=== PATIENT | male | born 1955 | race Caucasian/White ===

== ENCOUNTER 2020-06-23 09:45 | Day surgery (SDC) | payer MEDICARE, OTHER ==
[2020-06-18 11:05] LABS: BASOPHILS % (AUTO) 0.2 % (0-1); EOSINOPHILS # (AUTO) 0.1 X10'3 (0-0.9); EOSINOPHILS % (AUTO) 1.3 % (0-6); LYMPHOCYTES # (AUTO) 1.8 X10'3 (1.1-4.8); LYMPHOCYTES % (AUTO) 24.3 % (21-51); MEAN CORPUSCULAR HEMOGLOBIN 31.3 PG (27.0-31.0); MEAN CORPUSCULAR HGB CONC 34.2 g/dL (33.0-36.5); MEAN CORPUSCULAR VOLUME 91.4 FL (78-98); MEAN PLATELET VOLUME 7.6 FL (7.4-10.4); MONOCYTES # (AUTO) 0.7 X10'3 (0-0.9); MONOCYTES % (AUTO) 9.2 % (2-12); NEUTROPHILS # (AUTO) 4.8 X10'3 (1.8-7.7); PRE OP HEMOGLOBIN 14.4 g/dL (14.0-17.9); PRE OP PLATELET COUNT 251 X10'3 (140-440); RED CELL DISTRIBUTION WIDTH 13.3 % (11.5-14.5)
[2020-06-18 11:12] LABS: ALBUMIN 3.9 G/DL (3.4-5.0); ALBUMIN/GLOBULIN RATIO 1.1 (1.1-1.5); ALKALINE PHOSPHATASE 56 IU/L (46-116); BLOOD UREA NITROGEN 11 MG/DL (7-18); BUN/CREATININE RATIO 14.5 (5.4-32.0); CALCIUM 9.1 MG/DL (8.5-10.1); CHLORIDE 106 MMOL/L (99-107); CREATININE 0.76 MG/DL (0.60-1.10); PRE OP ALT 30 U/L (30-65); PRE OP ANION GAP 9 (8-16); PRE OP AST 14 U/L (10-37); PRE OP BILIRUB, TOTAL 0.7 MG/DL (0.0-1.0); PRE OP GLUCOSE 109 MG/DL (70-104); PRE OP POTASSIUM 4.3 MMOL/L (3.4-5.1); PRE OP SODIUM 143 MMOL/L (135-145); TOTAL CARBON DIOXIDE 27.8 MMOL/L (24-32); TOTAL PROTEIN 7.5 G/DL (6.4-8.2); eGFR > 90 ML/MIN
[2020-06-18 11:33] LABS: PRE OP PROTIME 10.7 SECONDS (9.0-12.0)
[2020-06-18 11:49] LABS: HEMOGLOBIN A1C 5.9 % (4.5-6.2)
[2020-06-23] VITALS (16 sets, daily range): BP systolic 96–148; BP diastolic 51–88
[~2020-06-23] VITALS: Ht 170.2 cm; Wt 88.5 kg
[~2020-06-23 09:45] MED LIST: AMLO10TA4 PO; ASPI81TA49 PO; CARV3.122 PO; DOCUMENT DATE & TIME OF BETA-BLOCKER PO ONE; FLO0.4C PO; MULT-227 PO; PANT-47 PO; TRANEXAMIC ACID 1 GM IN NACL,ISO-OS 100 ML IV ONE; VITA-268 PO; [UNRECOGNIZED DRUG - CODE] PO; [UNRECOGNIZED DRUG - OTHER] PO; [UNRECOGNIZED DRUG - OTHER] PO; ceFAZolin 2gm in dextrose, iso 50 ML IV ONE; famotidine 20mg tablet PO ONE; meperidine/PF 25mg/ml syringe IV PRN; morphine 2 MG/ML inj. syringe IV PRN; morphine 4 MG/ML inj SYRINge IV PRN; ondansetron/PF 4mg/2ml inj IV PRN; proCHLORperazine 10 MG/2 ml inj IV PRN; ringers solution, lacted 1,000 ML IV SCH; vancomycin 1,500 MG in NS 300ml IV soln IV ONE
[2020-06-23] MEDS ORDERED: ceFAZolin 1000mg inj ONE (10:57)
[2020-06-23] MEDS ORDERED: fentaNYL/PF 50MCG/1 ML 2ML syringe ONE (11:05)
[2020-06-23] MEDS ORDERED: morphine /PF 1mg/ml 10ml inj. ONE (11:05)
[2020-06-23] MEDS ORDERED: MIDAZolam 1mg/ml 10ml vial ONE (11:05)
[2020-06-23] MEDS ORDERED: BUPIVAcaine/PF 7.5mg/ml (0.75%) 10ml vial ONE (11:31)
[2020-06-23] MEDS ORDERED: ePHEDrine 50MG/ML INJ. ONE (11:33)
[2020-06-23] MEDS ORDERED: diphenhydrAMINE 50 mg/ml inj IV PRN (13:10)
[2020-06-23] MEDS ORDERED: ondansetron/PF 4mg/2ml inj IV PRN ×2 (13:10→13:50)
[2020-06-23] MEDS ORDERED: naloxone 2mg/2ml inj 1.8 MG in normal saline 500ml IV soln 500 ML IV PRN (13:10)
--- NOTE | 2020-06-23 13:40 | NUR ---
Received from OR via BED, accompanied by Anesthesiologist DR SULLIVAN and report given by Anesthesiolgist. PATIENT A&OX4, DENIES PAIN, V/S WNL, NEUROVASCULAR CHECKS INTACT, SCD ON, 18G PIV LUE, ARSEN DRESSING RIGHT HIP POWDER PACK CDI
[2020-06-23] MEDS ORDERED: HYDROmorphone inj. 0.5 MG/0.5 ML DISP.SYRIN IV PRN (13:50)
[2020-06-23] MEDS ORDERED: diphenhydrAMINE 25mg capsule PO PRN ×2 (13:50)
[2020-06-23] MEDS ORDERED: HYDROcodone/acetaminophen 10/325mg tab PO PRN (13:50)
[2020-06-23] MEDS ORDERED: acetaminophen 325mg tablet PO PRN (13:50)
[2020-06-23] MEDS ORDERED: [UNRECOGNIZED DRUG - OTHER] PO PRN (13:50)
[2020-06-23] MEDS ORDERED: bisacodyl 10mg suppository rectal RC PRN (13:50)
[2020-06-23] MEDS ORDERED: magnesium hydroxide 30ml (MOM) UD suspension PO PRN (13:50)
--- NOTE | 2020-06-23 14:15 | NUR ---
Patient in room [facility]. I have received report from MATIAS MCKEE IN [facility] and had the opportunity to ask questions and assume patient care.
--- NOTE | 2020-06-23 14:30 | NUR ---
PATIENT A&OX4, DENIES PAIN, V/S WNL, NEUROVASCULAR CHECKS INTACT, SCD ON, 18G PIV LUE, ARSEN DRESSING RIGHT HIP POWDER PACK CDI. PATIENT TAKEN TO 340A WITH ALL BELONGINGS AND IN ROOM AND REPORT GIVEN TO RN WHO HAS TAKEN OVER PATIENT CARE.
[2020-06-23] MEDS: ceFAZolin/D5W- 1GM premix 50 ML IV SCH ×2 (16:00→23:54)
[2020-06-23] MEDS: ketorolac tromethamine 15mg/ml inj. IV SCH ×2 (17:24→20:45)
[2020-06-23] MEDS: HYDROcodone/acetaminophen 10/325mg tab PO PRN (17:25)
[2020-06-23] MEDS: potassium Cl 20mEq in NS 1,000 ML IV SCH (17:25)
--- NOTE | 2020-06-23 18:25 | NUR ---
Problems reprioritized. Patient report given, questions answered & plan of care reviewed with MATIAS FRENCH.
[2020-06-23] MEDS ORDERED: vancomycin/NS 1 GM ADD-VANTAGE 250 ML IV SCH (20:00)
[2020-06-23] MEDS ORDERED: tamsulosin 0.4mg capsule PO SCH (21:00)
[2020-06-23] MEDS ORDERED: sennosides 8.6mg tablet PO SCH (21:00)
[2020-06-24] VITALS: BP 100/59
[2020-06-24] MEDS: ketorolac tromethamine 15mg/ml inj. IV SCH ×2 (01:41→08:26)
[2020-06-24] MEDS: potassium Cl 20mEq in NS 1,000 ML IV SCH (03:10)
[2020-06-24 05:26] LABS: BASOPHILS % (AUTO) 0.1 % (0-1); EOSINOPHILS % (AUTO) 0.6 % (0-6); HEMATOCRIT 32.5 % (42.0-52.0); LYMPHOCYTES # (AUTO) 1.3 X10'3 (1.1-4.8); LYMPHOCYTES % (AUTO) 17.3 % (21-51); MEAN CORPUSCULAR HEMOGLOBIN 30.8 PG (27.0-31.0); MEAN CORPUSCULAR HGB CONC 33.9 g/dL (33.0-36.5); MEAN PLATELET VOLUME 8.2 FL (7.4-10.4); MONOCYTES # (AUTO) 0.8 X10'3 (0-0.9); MONOCYTES % (AUTO) 10.7 % (2-12); NEUTROPHILS # (AUTO) 5.2 X10'3 (1.8-7.7); NEUTROPHILS % (AUTO) 71.3 % (42-75); PLATELET COUNT 189 X10'3 (140-440); RED BLOOD COUNT 3.57 X10'6 (4.70-6.10); RED CELL DISTRIBUTION WIDTH 13.3 % (11.5-14.5); WHITE BLOOD COUNT 7.3 X10'3 (4.5-11.0)
[2020-06-24] MEDS: HYDROcodone/acetaminophen 10/325mg tab PO PRN (05:40)
[2020-06-24 05:47] LABS: ALANINE AMINOTRANSFERASE 19 U/L (12-78); ALBUMIN 2.8 G/DL (3.4-5.0); ALKALINE PHOSPHATASE 38 IU/L (46-116); ANION GAP 5 (8-16); ASPARTATE AMINO TRANSFERASE 18 U/L (10-37); BILIRUBIN,TOTAL 0.5 MG/DL (0.1-1.0); BLOOD UREA NITROGEN 17 MG/DL (7-18); BUN/CREATININE RATIO 17.7 (5.4-32.0); CALCIUM 7.9 MG/DL (8.5-10.1); CHLORIDE 107 MMOL/L (99-107); CREATININE 0.96 MG/DL (0.60-1.10); GLUCOSE 134 MG/DL (70-104); POTASSIUM 4.2 MMOL/L (3.5-5.1); SODIUM 139 MMOL/L (135-145); TOTAL CARBON DIOXIDE 26.9 MMOL/L (24-32); TOTAL PROTEIN 5.7 G/DL (6.4-8.2); eGFR 78 ML/MIN
--- NOTE | 2020-06-24 06:45 | NUR ---
REPORT GIVEN TO MATIAS YANG.
--- NOTE | 2020-06-24 07:00 | NUR ---
ORTHO NURSE CAME DOWN AND TOOK OVER FOR THIS PT. GAVE REPORT.
--- NOTE | 2020-06-24 07:03 | NUR ---
Patient in room [facility]. I have received report from DEBBIE SALCEDO and had the opportunity to ask questions and assume patient care.
[2020-06-24] MEDS ORDERED: pantoprazole 40mg Tablet.DR PO SCH (07:30)
[2020-06-24 07:37] VITALS: BP 109/55
[2020-06-24] MEDS ORDERED: carVEDilol 3.125mg tablet PO SCH (08:00)
[2020-06-24] MEDS ORDERED: multivitamins, therapeutics tablet PO SCH (08:00)
[2020-06-24] MEDS ORDERED: aspirin 81mg tablet.DR PO SCH (08:00)
[2020-06-24] MEDS ORDERED: amLODIPine 5mg tablet PO SCH (08:00)
[2020-06-24] MEDS ORDERED: ASPI-1071 PO (08:38)
[2020-06-24] MEDS ORDERED: HYDR-4298 PO (09:22)
== END 2020-06-24 11:07 | disposition home or self-care (01) ==
LOC: PAS 09:45 → SUR 3N 13:58 → PAS 06-24 11:07
PROVIDERS: ATTEND Orthopaedic Surgery
DX: M16.11 Unilateral primary osteoarthritis, right hip (principal); G47.30 Sleep apnea, unspecified; K21.9 Gastro-esophageal reflux disease without esophagitis; I10 Essential (primary) hypertension; N40.0 Benign prostatic hyperplasia without lower urinary tract symptoms; E66.9 Obesity, unspecified; Z68.30 Body mass index [BMI] 30.0-30.9, adult; Z79.01 Long term (current) use of anticoagulants; Z79.82 Long term (current) use of aspirin; Z79.899 Other long term (current) drug therapy; Z20.828 Contact with and (suspected) exposure to other viral communicable diseases; Z98.890 Other specified postprocedural states
CPT/HCPCS: 27130; 36415; 80053; 82948; 83036; 85025; 85610; 85730; 86885; 86900; 86901; 86920; 87081; 87635; 97110; 97116; 97162; 97530; 97535; C1758; C1776; J0690; J1885; J2250; J2270; J3010; J3370; J3480; J3490; J7040; J7120; A4615; A4618; A6402; A7000; G0378

== ENCOUNTER 2024-05-08 13:07 | Emergency (ER) | payer MEDICARE, OTHER ==
[~2024-05-08] VITALS: Ht 170.2 cm; Wt 94.5 kg
[~2024-05-08 13:07] MED LIST changes: +ASPI-1071 PO; -ASPI81TA49 PO; -DOCUMENT DATE & TIME OF BETA-BLOCKER PO ONE; +HYDR-4298 PO; -TRANEXAMIC ACID 1 GM IN NACL,ISO-OS 100 ML IV ONE; -VITA-268 PO; -[UNRECOGNIZED DRUG - CODE] PO; -[UNRECOGNIZED DRUG - OTHER] PO; -ceFAZolin 2gm in dextrose, iso 50 ML IV ONE; -famotidine 20mg tablet PO ONE; -meperidine/PF 25mg/ml syringe IV PRN; -morphine 2 MG/ML inj. syringe IV PRN; -morphine 4 MG/ML inj SYRINge IV PRN; -ondansetron/PF 4mg/2ml inj IV PRN; -proCHLORperazine 10 MG/2 ml inj IV PRN; -ringers solution, lacted 1,000 ML IV SCH; -vancomycin 1,500 MG in NS 300ml IV soln IV ONE
[2024-05-08 13:46] VITALS: BP 158/84; PULSE 73; RESP 18; O2SAT 96
[2024-05-08] MEDS: LIDOcaine 1% W/epiNEPHrine 1:100,000 20ml vial SQ ONE (16:02)
[2024-05-08 16:36] VITALS: TEMP 97.5
== END 2024-05-08 16:38 | disposition home or self-care (01) ==
LOC: ER 13:08
DX: M25.462 Effusion, left knee (principal); M25.562 Pain in left knee; I10 Essential (primary) hypertension; G89.29 Other chronic pain; Z79.899 Other long term (current) drug therapy
CPT/HCPCS: 20610; 73564; 99283; A6402; A6449; Z7610

== ENCOUNTER 2024-05-11 13:47 | Emergency (ER) | payer MEDICARE, OTHER ==
[~2024-05-11] VITALS: Ht 170.2 cm; Wt 93.2 kg
[2024-05-11 13:55] VITALS: BP 149/85; PULSE 74; RESP 18; O2SAT 97
[2024-05-11 15:01] VITALS: TEMP 98.5
== END 2024-05-11 15:03 | disposition home or self-care (01) ==
LOC: ER 13:47
DX: M25.462 Effusion, left knee (principal); M25.562 Pain in left knee; I10 Essential (primary) hypertension; G89.29 Other chronic pain; Z79.899 Other long term (current) drug therapy
CPT/HCPCS: 20610; 99283

== ENCOUNTER 2024-05-26 10:21 | Emergency (ER) | payer MEDICARE, OTHER ==
[~2024-05-26] VITALS: Ht 170.2 cm; Wt 94.8 kg
[2024-05-26] MEDS ORDERED: DOXY-1 PO (11:47)
[2024-05-26 11:51] VITALS: BP 170/89; PULSE 67; RESP 16; TEMP 98; O2SAT 99
== END 2024-05-26 11:52 | disposition home or self-care (01) ==
LOC: ER 10:21
DX: M25.462 Effusion, left knee (principal); M25.562 Pain in left knee; I10 Essential (primary) hypertension; G89.29 Other chronic pain; Z79.899 Other long term (current) drug therapy
CPT/HCPCS: 99283